=== PATIENT | male | born 1995 | race African-American/Black ===

== ENCOUNTER 2017-06-13 19:00 | Emergency (ER) | payer MEDICAID ==
[~2017-06-13] VITALS: Ht 175.3 cm; Wt 59.0 kg
[2017-06-13 19:42] VITALS: BP_SYST 124
[2017-06-13] MEDS ORDERED: DIPH-TET-PERTUS Vaccine 0.5 ML VIAL (ADACEL) IM ONE (20:00)
[2017-06-13] MEDS ORDERED: BACITRACIN 1 GM OINT TP ONE (20:30)
[2017-06-13] MEDS ORDERED: IBUPROFEN 600 MG TABLET PO ONE (20:30)
[2017-06-13 21:20] VITALS: BP_SYST 121
== END 2017-06-13 21:20 | disposition home or self-care (01) ==
LOC: SED 19:00
DX: S61.412A Laceration without foreign body of left hand, initial encounter (principal); J45.909 Unspecified asthma, uncomplicated; R03.0 Elevated blood-pressure reading, without diagnosis of hypertension; W45.8XXA Other foreign body or object entering through skin, initial encounter; Y93.89 Activity, other specified; Y92.89 Other specified places as the place of occurrence of the external cause; Y99.8 Other external cause status
CPT/HCPCS: 99283

== ENCOUNTER 2018-05-08 17:02 | Emergency (ER) | payer SELFPAY ==
[~2018-05-08] VITALS: Ht 175.3 cm; Wt 61.2 kg
[2018-05-08 17:06] VITALS: BP_SYST 130
--- NOTE | 2018-05-08 17:10 | NUR ---
Patient to ER bed 8 to gown for evaluation. Side rails up. Report given to Mago TAN.
--- NOTE | 2018-05-08 17:12 | NUR ---
Pt brought by self,A&Ox4, pt presents to ER wih cough and congestion x 2 weeks, pt c/o chest pain during coughing, VS WNL, pt afebrile, VS WNL.
--- NOTE | 2018-05-08 17:14 | NUR ---
Dr Reyes at bedside examining patient
--- NOTE | 2018-05-08 17:51 | NUR ---
Patient given written and verbal discharge instructions and verbalizes understanding. ER MD discussed with patient the results and treatment provided. Patient in stable condition. ID arm band removed. Rx of Proventil and Promethazine given. Patient educated on pain management and to follow up with PMD. Pain Scale 0/10. Opportunity for questions provided and answered. Medication side effect fact sheet provided.
== END 2018-05-08 17:51 | disposition home or self-care (01) ==
LOC: SED 17:02
DX: J06.9 Acute upper respiratory infection, unspecified (principal); J45.909 Unspecified asthma, uncomplicated; R03.0 Elevated blood-pressure reading, without diagnosis of hypertension
CPT/HCPCS: 99283

== ENCOUNTER 2018-08-22 05:08 | Emergency (ER) | payer SELFPAY ==
[~2018-08-22] VITALS: Ht 175.3 cm; Wt 63.5 kg
[2018-08-22 05:48] VITALS: BP_SYST 126
[2018-08-22 06:15] LABS: BILIRUBIN,URINE NEGATIVE (NEGATIVE); BLOOD, URINE 1+ (NEGATIVE); CLARITY/URINE CLEAR (CLEAR); COLOR,URINE YELLOW (YELLOW); GLUCOSE,URINE NEGATIVE (NEGATIVE); KETONES,URINE NEGATIVE (NEGATIVE); LEUKOCYTE ESTERASE ,URINE NEGATIVE (NEGATIVE); NITRITE, URINE NEGATIVE (NEGATIVE); PROTEIN URINE NEGATIVE (NEGATIVE); UROBILINOGEN,URINE 0.2 (0.2-1.0)
[2018-08-22] MEDS ORDERED: cefTRIAXone 1 GM VIAL IM ONE (06:15)
[2018-08-22] MEDS ORDERED: AZITHROMYCIN 250 MG TABLET PO ONE (06:15)
[2018-08-22 06:20] LABS: BACTERIA,URINE FEW /HPF (None Seen); WBC,URINE 0-3 /HPF (0-3)
[2018-08-22] MEDS ORDERED: HYDROcodone/ACETAMIN 5-325 MG TAB (NORCO/ VICODIN) PO ONE (06:30)
[2018-08-22 06:53] VITALS: BP_SYST 122
[2018-08-24 13:57] LABS: CHLAMYDIA TRACHOMATIS NAA Negative (Negative); NEISSERIA GONORRHOEAE NAA Negative (Negative)
== END 2018-08-22 06:53 | disposition home or self-care (01) ==
LOC: SED 05:08
DX: R30.0 Dysuria (principal); J45.909 Unspecified asthma, uncomplicated
CPT/HCPCS: 81000; 87086; 87491; 87591; 96372; 99283; J0696; Q0144